=== PATIENT | male | born 1965 ===

== ENCOUNTER 2023-01-13 11:09 | Day surgery (SDC) | payer BC ==
[2023-01-08 12:15] VITALS: BMI 25.9
[~2023-01-13 11:09] MED LIST: LACTATED RINGERS 1,000 ML IV SCH; LIDOCAINE 1% (10MG/ML) FOR IV START INTRADERMA PRN
[2023-01-13 12:02] VITALS: TEMP 97
[2023-01-13] MEDS ORDERED: PROPOFOL 10 MG/ML 20 ML VIAL IV ONE (12:27)
--- NOTE | 2023-01-13 12:47 | P.PCN ---
Date of Procedure: 01/13/23 Procedure(s) Performed: BRIEF HISTORY: Patient is a 57-year-old pleasant male scheduled for an elective colonoscopy as a part of screening for colon cancer/positive cologuard. PROCEDURE PERFORMED: Colonoscopy with snare polyp rectum PREOPERATIVE DIAGNOSIS: Screening for colon cancer/polyps cologuard. IV sedation per Anesthesia. PROCEDURE: After informed consent was obtained, the patient, was brought into the endoscopy unit. IV sedation was administered by Anesthesia under continuous monitoring. Digital rectal examination was normal. Initially the Olympus CF-160 flexible video colonoscope was then inserted in the rectum, gradually advanced into the cecum without any difficulty. Careful examination was performed as the scope was gradually being withdrawn. Ileocecal valve and the appendiceal orifice were visualized and appeared normal. Prep was excellent. Mucosa of the cecum, and a 5 mm polyp that was removed by snare polypectomy. Rest of the ascending colon, transverse colon, appeared normal. The descending colon there was a 6 mm polyp was removed by snare polypectomy. Rest of the descending colon, sigmoid colon, and rectum appeared normal. in the rectum there was a 5 mm In the rectum there was a 3 mm and 1 cm polyp removed by snare polypectomy. Retroflexion was performed in the rectum and no lesions were seen. The patient tolerated the procedure well. IMPRESSION: 5 mm cecal polyp status post polypectomy 6 mm descending colon polyp status post polypectomy 3 mm and 1 cm rectal polyps status post polypectomy RECOMMENDATIONS: Findings of this examination were discussed with the patient as well as a family. He was advised to follow with the biopsy results. If the biopsy is adenoma he can have a repeat colonoscopy in.
[2023-01-13 13:30] VITALS: BP 137/80; PULSE 60; RESP 18
== END 2023-01-13 13:45 | disposition home or self-care (01) ==
LOC: ORWHC2ENDO 11:09 → EDSEX 14:00
PROVIDERS: ATTEND Internal Medicine Gastroenterology
DX: D12.0 Benign neoplasm of cecum (principal); D12.4 Benign neoplasm of descending colon; D12.8 Benign neoplasm of rectum; K21.9 Gastro-esophageal reflux disease without esophagitis; Z88.0 Allergy status to penicillin
CPT/HCPCS: 88305; 45385; J2704

== ENCOUNTER 2023-08-14 08:58 | Day surgery (SDC) | payer BC, OTHER ==
[2023-08-12 16:02] VITALS: BMI 26.5
[~2023-08-14 08:58] MED LIST changes: -LACTATED RINGERS 1,000 ML IV SCH
[2023-08-14] MEDS: LACTATED RINGERS 1,000 ML IV SCH ×2 (09:41→10:56)
[2023-08-14 10:02] VITALS: RESP 16; TEMP 97.7
--- NOTE | 2023-08-14 11:06 | P.PCN ---
Date of Procedure: 08/14/23 Procedure(s) Performed: BRIEF HISTORY: Patient is a 58-year-old, pleasant, male scheduled for an upper endoscopy as a part of value should of intermittent dysphagia to solids for the last 2 years duration.. PROCEDURE PERFORMED: Esophagogastroduodenoscopy with biopsy and dilation. PREOPERATIVE DIAGNOSIS: Intermittent dysphagia to solids for the last 2 years duration.. IV sedation per anesthesia. PROCEDURE: After informed consent was obtained, the patient was brought into the endoscopy unit. IV sedation was administered by Anesthesia under continuous monitoring. Initially the Olympus GIF-140 video endoscope was inserted into the mouth. Esophagus intubated without any difficulty. It was gradually advanced into the stomach and duodenum and carefully examined. The bulb and the second part of the duodenum appeared normal. The scope at this time was withdrawn to the stomach, adequately insufflated with air, and upon careful examination, mucosa of the antrum, body, cardia and the fundus appeared normal. The scope was then withdrawn into the esophagus. Small hiatal hernia. The GE junction was located at 39 cm from the incisors. There was a widely patent distal esophageal Schatzki's ring identified that was dilated using 18-20 mm TTS balloon in a sequential fashion for 45 seconds. There was a small mucosal thickened with oozing identified and further dilation was not performed. The esophagus appeared normal. Biopsies were done from the distal esophagus. There were no erosions or ulcerations seen and the patient tolerated the procedure well. IMPRESSION: 1. Distal esophageal Schatzki's ring status post balloon dilation using 18-20 mm TTS balloon as described above. 2. Small hiatal hernia. RECOMMENDATIONS: The findings of this examination were discussed with the patient as well as his family. Follow with the biopsy results. He was advised to remain on a clear liquid diet for 2 hours. Trial of Prilosec 20 mg daily half hour before breakfast and follow antireflux measures..
[2023-08-14 11:48] VITALS: BP 123/79; PULSE 71
== END 2023-08-14 11:43 | disposition home or self-care (01) ==
LOC: ORWHC2ENDO 08:58
PROVIDERS: ATTEND Internal Medicine Gastroenterology
DX: K22.2 Esophageal obstruction (principal); K44.9 Diaphragmatic hernia without obstruction or gangrene; F17.200 Nicotine dependence, unspecified, uncomplicated; K21.9 Gastro-esophageal reflux disease without esophagitis; Z88.0 Allergy status to penicillin
CPT/HCPCS: 88305; 43239; 43249; C1726